=== PATIENT | female | born 1995 | race Caucasian/White ===

== ENCOUNTER 2018-06-29 05:37 | Inpatient (IN) ==
[2018-06-29] MEDS ORDERED: Naloxone 0.4 MG/ML INJ IVP PRN (05:39)
[2018-06-29] MEDS ORDERED: Famotidine 20 MG/2 ML VIAL IVP PRN (05:39)
[2018-06-29] MEDS ORDERED: Metoclopramide 10 MG/2 ML VIAL IVP PRN ×2 (05:39→11:14)
[2018-06-29] MEDS ORDERED: Ringers Solution, Lactated 1,000 ML IVC ONE (05:41)
[2018-06-29] MEDS ORDERED: Ringers Solution, Lactated 1,000 ML IVC SCH (05:45)
[2018-06-29 06:50] LABS: Basophils # 0.1 K/mcL (0.0-0.2); Basophils % 0.6 %; Eosinophils # 0.3 K/mcL (0.0-0.6); Eosinophils % 3.6 %; Hematocrit 34.5 % (35.3-44.9); Hemoglobin 11.2 g/dL (11.5-15.4); Immature Granulocytes % 0.8 % (0-4); Lymphocytes # 1.4 K/mcL (0.6-4.6); Lymphocytes % 15.7 %; Mean Corpuscular HGB Conc 32.5 g/dL (31.6-35.5); Mean Corpuscular Hemoglobin 26.4 pg (28.0-33.3); Mean Corpuscular Volume 81.4 fL (83.0-100.0); Mean Platelet Volume 12.5 fL (9.4-12.4); Monocytes # 0.7 K/mcL (0.0-1.3); Monocytes % 7.2 %; Neutrophils # 6.5 K/mcL (1.6-8.9); Platelet Count 234 K/mcL (140-400); Red Blood Count 4.24 M/mcL (3.82-4.97); Red Cell Distribution Width 13.4 % (11.5-14.5); Segmented Neutrophils % 72.1 %
--- NOTE | 2018-06-29 06:53 | Anesthesia Evaluation PreOp ---
Date of Encounter: 06/29/18 Time of Encounter: 06:51 - Past History Planned Operation: Repeat Cardiac History: Denies any Significant Hx Pulmonary History: Denies Any Significant HX MECHANICAL PRODUCT ENGINEER History: Denies Any Significant HX Other Medical History: Denies Any Significant HX Anesthesia History: No Prior Anesthetic Complications (previous REINA x 1 w/ no complications; denies personal and family h/o GA complications), Past Anesthesia (GA for b/c REINA unable to provide adequate anesthesia) : Yes Alcohol Use: none Drug use: none Medications and Allergies Tablet 1 tab PO DAILY 11/29/17 [History] 3 Allergy/AdvReac Type Severity Reaction Status Date / Time No Known Allergies Allergy Verified 05/26/17 18:06 - Meds/Allergy Pre-op Review Medications Reviewed: Yes Allergies Reviewed: Yes Beta Blockers on Current Med List: No Anesthesia Exam 128/72, HR 90, RR 18 O2 Sat Height 1.78 m Weight 127.9 kg NPO (# of Hours): > 8hrs Pain Scale: 0 Pain Scale Used: Numeric (1 - 10) - HEENT Pupil (Motor): Pupils equal Mallampati: I Teeth: Normal Oral Opening: Greater than 3 - MECHANICAL PRODUCT ENGINEER LOC: Oriented MECHANICAL PRODUCT ENGINEER Motor: Normal RUE, Normal LUE, Normal RLE, Normal LLE, Normal Face MECHANICAL PRODUCT ENGINEER Sensory: Normal: RUE, LUE, RLE, LLE, Face - Cardiac Rhythm: Regular Murmur: None - Pulmonary Breath Sounds: bilateral Clear Respiratory Effort: Symmetrical Anesthesia Assess/Plan ASA Score: 3 (BMI >40) Modified Dar Scale for Level of Consciousness: Cooperative, oriented, and tranquil Anesthetic Plan: General (plan B), Regional (single shot spinal plan A) Autologous Blood: No Monitoring Plan: Standard Monitors Recovery Plan: PACU
[2018-06-29 07:22] LABS: Amphetamine Screen,Urine Negative ng/mL (Cutoff=1000); Barbiturate Screen,Urine Negative ng/mL (Cutoff=200); Benzodiazepines Screen,Urine Negative ng/mL (Cutoff=300); Cannabinoid Screen,Urine Negative ng/mL (Cutoff = 50); Cocaine Screen,Urine Negative ng/mL (Cutoff= 300); Opiate Screen,Urine Negative ng/mL (Cutoff=300); Phencyclidine Screen,Urine Negative ng/mL (Cutoff=25)
[2018-06-29] MEDS ORDERED: MetroNIDAZOLE 500 MG/100 ML 500 MG/100 ML BAG IVPB ONE (07:25)
[2018-06-29] MEDS ORDERED: cefOXitin 2,000 MG in Water for inj. (sterile) 20 ML 20 ML IVP ONE (07:26)
--- NOTE | 2018-06-29 07:31 | OB/GYN History & Physical ---
Date of Encounter: 06/29/18 Time of Encounter: 07:28 Assessment and Plan (1) 39 weeks gestation of Current visit: Yes Status: Acute The patient has received care since 10 weeks gestation. (2) Obesity complicating , third trimester Current visit: Yes Status: Acute The patient has had glucose testing which has been reassuring. She has had serial ultrasounds with reassuring growth. (3) Previous delivery affecting , antepartum Current visit: Yes Status: Acute The patient was offered TOLAC versus repeat . She has given informed consent to proceed today for repeat . (4) Preoperative evaluation for tubal ligation Current visit: Yes Status: Acute The patient signed consent on 03/03/18 for a tubal ligation. Her desire to have permanent sterilization has been reviewed today and confirmed (5) UTI in , antepartum Current visit: Yes Status: Acute Patient has received serial urine cultures during and they have been negative (6) Positive GBS test Current visit: Yes Status: Acute The patient is aware of her results. As long as she had not ruptured prior to scheduled she/fetus would not need to be treated History of Present Illness Chief complaint: Repeat with tubal ligation HPI: Ms. Conway is a 22 year old female with an EDC of 07/04/18 making her 39 weeks and 2 days who presents for repeat and tubal ligation. She is given informed consent and she has also signed Medicaid tubal papers on . She reports an active fetus. She had a headache yesterday but none today. She denies regular contractions but has had some heart pains. She has had no vaginal bleeding or loss of fluid. The has been complicated by obesity, history of previous , positive HSV-2, UTI, low-grade dysplasia and positive GBS test. Her blood type is AB+ she is rubella immune varicella immune Past Med Surg Social Fam HX - Past Medical History Source: patient, old records reviewed Medical history: no medical history, other Additional medical history: headaches Psychiatric history: no psych history - Past Surgical History Surgical History: other Additional surgical history: C/S X1 - Social History Smoking Status: Never smoker Smokeless Tobacco Status: No Alcohol use: none Drug use: none - Family History Mother Hx Family Cardiac Disorders: No Hx Family Respiratory Disorders: No Hx Family Cancer: No Hx Family GI Disorders: No Hx Family Genitourinary Disorders: No Hx Family Endocrine Disorder: No Hx Family Musculoskeletal Disorders: No Hx Family Neuromuscular Disorders: No Hx Family Neurologic Disorders: No Hx Family HEENT Disorders: No Hx Family Autoimmune Disorders: No Hx Family Reproductive Disorders: No Hx Family Psychosocial Disorders: No Hx Family Medical Disorders: No Obstetrical History - Pregnancies : 2 Term: 1 Livin Medications and Allergies Tablet 1 tab PO DAILY 11/29/17 [History] 3 Allergy/AdvReac Type Severity Reaction Status Date / Time No Known Allergies Allergy Verified 05/26/17 18:06 Review of System OB All systems PM: reviewed and no additional remarkable complaints except as stated - Constitutional Constitutional ROS IM: weight gain - Neurological Nerological: as per HPI Exam - Vital Signs Vital signs: Afebrile, vital signs stable - Constitutional Constitutional: well developed, well nourished, no acute distress, obese - HEENT HEENT: Normocephaly, Mucus Membranes Moist - Neck Neck exam: normal inspection, supple - Lungs Respiratory exam: CTAB - Cardiovascular Cardiovascular exam: RRR - Breasts Breast: bilateral: normal (Gravid) - Abdomen Abdomen: Present: bowel sounds normal, gravid, non tender - Extremities Extremities exam: pedal edema, warm Deep Tendon Reflex Grade: 3+ Normal But Brisk - Vulva Vulva: bilateral: normal - Vagina Vagina: Present: normal moisture - Anus/Rectum Anus/Rectum: Present: normal perianal skin Results Result Diagrams: 06/29/18 06:20 Abnormal lab results Hgb 11.2 g/dL (11.5-15.4) L 06/29/18 06:20 Hct 34.5 % (35.3-44.9) L 06/29/18 06:20 MCV 81.4 fL (83.0-100.0) L 06/29/18 06:20 MCH 26.4 pg (28.0-33.3) L 06/29/18 06:20 MPV 12.5 fL (9.4-12.4) H 06/29/18 06:20 All other labs normal. - VTE Documentation of Mechanical Device: Intermittent pneumatic compression device
[2018-06-29] MEDS ORDERED: EPHEDrine 50 MG/ML VIAL ONE (07:40)
[2018-06-29] MEDS ORDERED: *HR* FentaNYL (PF) 100 MCG/2 ML VIAL ONE (07:41)
[2018-06-29] MEDS ORDERED: *HR* Morphine Sulfate/PF 10 MG/10 ML AMPUL ONE (07:41)
[2018-06-29] MEDS ORDERED: Ringers Solution, Lactated 1,000 ML ONE (07:42)
[2018-06-29] MEDS ORDERED: *HR* Oxytocin 10 UNIT/ML VIAL IM ONE (07:42)
[2018-06-29] MEDS ORDERED: Lidocaine -MPF 1% 5 ML AMPUL ONE (07:42)
[2018-06-29] MEDS ORDERED: Ondansetron 4 MG/2 ML VIAL ONE (08:40)
[2018-06-29] MEDS ORDERED: Dexamethasone 4 MG/ML VIAL ONE (08:40)
--- NOTE | 2018-06-29 08:57 | Anesthesia Procedures ---
Date of Encounter: 06/29/18 Time of Encounter: 07:45 Procedures: Anesthesia - Epidural/Spinal Patient ID/Chart reviewed: Yes Patient examined: Yes OB Eval: Gestational age: 39.3 OB Eval: : 2 OB Eval: Hx Para: 1 OB Eval: Contractions: Non-stressed pattern Consent Obtained: Yes Site Prep: Aseptic Technique, Sterile prep and drape, Povidone-Iodine 1% Patient position: upright Amount of Local Anesthetic used: 3 Interspace Used: L4-L5 Loss of Resistance (PRUDENCIO): No Blood: No CSF: Yes Paresthesia: Yes Procedure: Bupicicaine 0.75% 1.6ml fentanyl 10mcg duramorph 0.3mg Vitals + FHT's: stable throughout see nursing notes
[2018-06-29] MEDS ORDERED: *HR* Morphine 2 MG/ML SYRINGE IVP PRN (08:58)
[2018-06-29] MEDS ORDERED: Ondansetron 4 MG/2 ML VIAL IVP PRN ×2 (08:58→11:14)
[2018-06-29] MEDS ORDERED: *HR* OxyCODONE/APAP 5/325 TABLET PO PRN ×2 (08:58→11:14)
[2018-06-29] MEDS ORDERED: Acetaminophen IV 1,000 MG/100 ML INFUS..BTL IVPB ONE (08:58)
[2018-06-29] MEDS ORDERED: *HR* Meperidine 25 MG/ML SYRINGE IVP PRN (08:58)
[2018-06-29] MEDS ORDERED: Ondansetron 4 MG/2 ML VIAL IVP ONE (08:58)
[2018-06-29] MEDS ORDERED: *HR* Promethazine 25 MG/ML VIAL IVP PRN (08:58)
--- NOTE | 2018-06-29 09:34 | OB/GYN Procedure Note ---
Section - Date of procedure: 06/29/18 Preop diagnosis: desires repeat , desires sterilization Post-op diagnosis: same Procedure: section, repeat low transverse, bilateral tubal ligation Surgeon: Diamante Poon Blood Loss: 500 Was there an elder assistant present: Yes Boots And Shoes Supervisor: Stanislaw Mcgill Anesthesiologist: Melisa England Manager Of Change: Maria Isabel Hudson Anesthesia Type: Spinal section complications: none Disposition: L&D Recovery Room Specimens: Placenta, Cord segment, Right tube segment, Left tube segment - Infant (s) A Infant Delivery Date: 06/29/18 Infant Delivery Time: 08:34 Presentation: vertex Position: OP Route of delivery: other ( section) Gender: Female Viability: Viable Pounds: 7 Ounces: 13 Gram Weight: 3.53 kg at 1 minute: 8 at 5 minutes: 8 Placenta: spontaneous Cord: 3 umbilical vessels - Narrative Narrative: The patient was taken to the operating room and spinal anesthesia was given and tested to be adequate for abdominal and pelvic surgery. She was prepped and draped in the usual sterile fashion. Timeout was completed. A Pfannenstiel skin incision was made above and below the old scar. The cicatrix was excised and then the subcutaneous layer was sharply dissected down to the fascia. The fascia was incised in the midline and extended bilaterally. 2 straight [place] clamps were placed on the inferior fascial edge and the fascia was bluntly and sharply dissected away from the rectus muscles. This was repeated superiorly. The rectus muscles were bluntly dissected. Peritoneum was bluntly entered and then extended superiorly and inferiorly. Anterior omental adhesions were lysed with a Bovie. Good hemostasis noted. The Bladder blade was placed to protect the bladder. Vesicouterine peritoneum was incised and reflected inferiorly and the bladder blade was replaced to protect the bladder. A low transverse incision was then made through the lower uterine segment down to the amnion. This was bluntly extended bilaterally. The amnion was bluntly entered. This was followed by the vertex delivery of a viable and vigorous female weighing _7_#_13_oz with Apgars of _8/8_. was placed on the maternal abdomen. The cord was clamped and cut after a delay. Infant was handed to the nursery care team. The placenta was delivered spontaneous and intact then the uterine cavity was digitally palpated and wiped clean with a moist lap sponge. There were no placental remnants identified. Clamps were placed on the uterine angles and the uterine incision was closed using 0 Vicryl suture in a running, locking fashion. A second imbricating layer completed the uterine closure with 0 Vicryl suture. Good hemostasis achieved. Attention was then placed on the fallopian tubes. The tubes and ovaries appeared grossly normal bilaterally. The left fallopian tube was grasped with a [place] clamp and O-Plain suture was used to doubly ligate a loop of tube. The loop of tube was then excised and sent to pathology. Good hemostasis is noted at the tubal lumens. This was repeated for the patient's right side. Again good hemostasis noted at the tubal lumens. The uterus was then examined and noted to be hemostatic. The pelvis was then irrigated with a copious amount of sterile water. And again good hemostasis was identified. The peritoneal edges and rectus muscles were then examined and found to be hemostatic. The fascia was then closed using 0 PDS loop in a running nonlocking fashion. Subcutaneous tissue was irrigated with sterile water, good hemostasis was achieved. This layer was closed with O - stratastfix. The skin was then closed using a 4-0 Monocryl in a running subcuticular fashion. The incision was then reinforced Dermabond the mesh closure. Good hemostasis was noted. Estimated blood loss was 500cc. The [place] was noted to be draining clear yellow urine at the end of the procedure. All sponge and instrument counts are correct at the end of the procedure. The patient was taken to the recovery room in stable condition.
[2018-06-29] MEDS ORDERED: Simethicone 80 MG TAB.CHEW PO PRN (11:14)
[2018-06-29] MEDS ORDERED: Sennosides 8.6 MG TABLET PO PRN (11:14)
[2018-06-29] MEDS: Ibuprofen 600 MG TABLET PO SCH ×2 (20:05→20:06)
[2018-06-29] MEDS: Oxytocin 20 units/ LR 1000 mL 20 UNIT/1,000 ML BAG IVC SCH ×2 (20:09→20:24)
--- NOTE | 2018-06-29 20:36 | Anesthesia Evaluation Post Op ---
Date of Encounter: 06/29/18 Time of Encounter: 09:00 - Lungs Lungs: Clear Ascult./Percussion - Airway Airway: Non-obstructed - Cardiovascular Regular Rate - Mental Status Mental Status: Alert & Oriented, Answers Appropriately - Pain Pain Scale: 0 - Nausea Vomiting Nausea Vomiting: Not Present - Hydration Hydration: NPO - Discharge PostOp Status: Transfer Patient to floor
[2018-06-30] MEDS: Ibuprofen 600 MG TABLET PO SCH ×4 (00:12→18:26)
[2018-06-30 05:56] LABS: Basophils # 0.1 K/mcL (0.0-0.2); Basophils % 0.4 %; Eosinophils # 0.2 K/mcL (0.0-0.6); Eosinophils % 1.8 %; Hematocrit 34.1 % (35.3-44.9); Hemoglobin 11.1 g/dL (11.5-15.4); Immature Granulocytes % 0.8 % (0-4); Lymphocytes # 1.8 K/mcL (0.6-4.6); Lymphocytes % 15.4 %; Mean Corpuscular HGB Conc 32.6 g/dL (31.6-35.5); Mean Corpuscular Hemoglobin 27.2 pg (28.0-33.3); Mean Corpuscular Volume 83.6 fL (83.0-100.0); Mean Platelet Volume 12.7 fL (9.4-12.4); Monocytes # 0.8 K/mcL (0.0-1.3); Monocytes % 6.8 %; Neutrophils # 8.8 K/mcL (1.6-8.9); Platelet Count 219 K/mcL (140-400); Red Blood Count 4.08 M/mcL (3.82-4.97); Red Cell Distribution Width 13.2 % (11.5-14.5); Segmented Neutrophils % 74.8 %
[2018-06-30] MEDS: Oxytocin 20 units/ LR 1000 mL 20 UNIT/1,000 ML BAG IVC SCH (06:13)
[2018-06-30] MEDS: Prenatal Vit/FA 1 EACH TABLET PO SCH (09:39)
[2018-06-30] MEDS ORDERED: Albuterol 2.5 MG/3 ML NEBULIZER IH PRN (11:36)
--- NOTE | 2018-06-30 11:40 | OB/GYN Progress Note ---
Date of Encounter: 06/30/18 Time of Encounter: 11:38 - Assessment and Plan (1) delivery delivered Current Visit: Yes Status: Acute Pt meeting all post-op day 1 milestones. Plan for discharge home PPD#2-3. (2) Wheezing on auscultation Current Visit: Yes Status: Acute Plan for albuterol nebulizer today. Education provided on splinting to cough and use of incentive spirometer. Subjective - Subjective Interval history: Pt reports some incisional pain but has not taken anything other than Motrin. She denies need for anything stronger at this time. She also reports a cough that has been present for about a week. Otherwise feeling well. Patient reports: appetite normal, voiding normally, pain well controlled, ambulating normally : doing well Objective - Vital Signs Latest vital signs: Vital Signs Temp Pulse Resp BP Pulse Ox 06/30/18 09:59 97.9 F 94 16 130/84 06/30/18 09:47 16 06/30/18 04:40 97.7 F 83 16 128/83 97 06/30/18 00:12 97.9 F 87 14 113/54 96 06/29/18 19:30 98.4 F 88 14 131/81 96 06/29/18 15:10 98.1 F 79 14 123/73 95 06/29/18 14:05 98.3 F 76 14 105/72 96 06/29/18 13:06 98.0 F 78 16 139/80 98 06/29/18 12:30 98.4 F 81 14 133/69 98 06/29/18 12:21 98.2 F 69 16 136/84 97 Intake and Output 06/29/18 06/30/18 06/30/18 23:59 07:59 15:59 Intake Total 1150 / 1150 Output Total 400 / 400 750 / 750 Balance -400 / -400 400 / 400 Intake: IV Fluids 1000 / 1000 Pitocin 20 unit In 1,000 ml @ 1000 / 1000 125 mls/hr IVC .Q8H JOYCE Rx#: [id number] Oral 150 / 150 Output: Urine 750 / 750 Catheter 400 / 400 Other: Weight 124.058 kg Patient Weight 06/30/18 23:59 Weight 124.058 kg - Exam Lungs: left: wheezes, right: diminished at base, bilateral: normal Chest: Normal S1, Normal S2 Extremities: Present: edema (1+ bilaterally) Abdomen: Present: soft Incision: Present: dry, intact Uterus: Present: firm - Labs Labs: Laboratory Results - last 24 hr 06/30/18 05:26 WBC 11.8 H RBC 4.08 Hgb 11.1 L Hct 34.1 L MCV 83.6 MCH 27.2 L MCHC 32.6 RDW 13.2 Plt Count 219 MPV 12.7 H Immature Gran % 0.8 Seg Neutrophils % 74.8 Lymphocytes % 15.4 Monocytes % 6.8 Eosinophils % 1.8 Basophils % 0.4 Neutrophils # 8.8 Lymphocytes # 1.8 Monocytes # 0.8 Eosinophils # 0.2 Basophils # 0.1
[2018-06-30] MEDS ORDERED: Permethrin Cream Rinse 60 ML LIQUID TP ONE (20:34)
--- NOTE | 2018-06-30 20:40 | Event Note ---
Date of Encounter: 06/30/18 Time of Encounter: 20:35 Pt c/o right side pain in lower ribcage. She also reports worsening shortness of breath since she has not been able to cough effectively due to incision pain. She has had 2 albulterol treatments without improvement of her sx. She is now tachycardic to 116 BPM as well. On exam crackles noted in all lung barrow bilaterally. This is significantly worse than this am. Plan for chest x-ray stat. SpO2 stable. POC discussed with Dr. Garay. Incidental finding of lice infestation noted at this time as well. Will treat for this as well.
[2018-06-30 21:40] LABS: ABG Base Excess -1 mEq/L (-2 to 3); ABG HCO3 22 mEq/L (21-27); ABG Oxygen Saturation 96 % (95-98); ABG PCO2 29 mmHg (35-45); ABG PH 7.49 pH Units (7.32-7.45); ABG PO2 71 mmHg (85-104); ABG TCO2 23 mEq/L (20-26)
[2018-06-30] MEDS: Isovue-370 500 ML INFUS..BTL IV ONE ×2 (22:18→22:19)
[2018-06-30 22:32] LABS: eGFR For Non-African Americans > 60 (> 60)
[2018-07-01] MEDS: Ibuprofen 600 MG TABLET PO SCH ×2 (00:06→11:00)
[2018-07-01] MEDS: Prenatal Vit/FA 1 EACH TABLET PO SCH (10:59)
[2018-07-01 11:21] VITALS: BP 144/87
--- NOTE | 2018-07-01 11:34 | Discharge Summary ---
Date of Encounter: 07/01/18 Time of Encounter: 11:24 - Discharge Diagnosis (1) delivery delivered Priority: Primary Status: Acute Comments: Stable in PP, pain well managed on po pain medication, tolerates regular diet, denies chest pain or SOB, bottle feeding, desires discharge, Will discharge home on Zithromax (2) Wheezing on auscultation Priority: Secondary Status: Acute Comments: Will discharge home on Zpack - Discharge Medications Prescriptions: OxyCODONE/APAP 5/325 [Percocet 5/325 MG] 1 each PO Q4HR PRN 5 Days #20 tablet PRN Reason: Moderate pain 4-6 Ibuprofen [Motrin] 600 mg PO Q6HR #60 tablet Azithromycin [Zithromax] 500 mg IVPB Q24H #7 vial Docusate [Colace] 100 mg PO BID #30 capsule Home Medications: Tablet 1 tab PO DAILY 11/29/17 [History] Azithromycin [Zithromax] 500 mg IVPB Q24H #7 vial 07/01/18 [Rx] Docusate [Colace] 100 mg PO BID #30 capsule 07/01/18 [Rx] GuaiFENesin ER [Mucinex] 600 mg PO BID PRN tbbp.12hr 07/01/18 [Rx] Ibuprofen [Motrin] 600 mg PO Q6HR #60 tablet 07/01/18 [Rx] OxyCODONE/APAP 5/325 [Percocet 5/325 MG] 1 each PO Q4HR PRN 5 Days #20 tablet [Rx] Vit/FA 1 each PO DAILY tablet 07/01/18 [Rx] Simethicone [Gas-X] 80 mg PO TID PRN tab.chew 07/01/18 [Rx] Allergies/Adverse Reactions: 3 Allergy/AdvReac Type Severity Reaction Status Date / Time No Known Allergies Allergy Verified 05/26/17 18:06 Data Procedures and tests throughout hospitalization: Laboratory Tests 06/29/18 06/29/18 06/30/18 06:20 06:20 05:26 WBC 9.1 11.8 H RBC 4.24 4.08 Hgb 11.2 L 11.1 L Hct 34.5 L 34.1 L MCV 81.4 L 83.6 MCH 26.4 L 27.2 L MCHC 32.5 32.6 RDW 13.4 13.2 Plt Count 234 219 MPV 12.5 H 12.7 H Immature Gran % 0.8 0.8 Seg Neutrophils % 72.1 74.8 Lymphocytes % 15.7 15.4 Monocytes % 7.2 6.8 Eosinophils % 3.6 1.8 Basophils % 0.6 0.4 Neutrophils # 6.5 8.8 Lymphocytes # 1.4 1.8 Monocytes # 0.7 0.8 Eosinophils # 0.3 0.2 Basophils # 0.1 0.1 Sample Site ABG pH ABG pCO2 ABG pO2 ABG HCO3 ABG Total CO2 ABG O2 Saturation ABG Base Excess Dwayne Test Creatinine Est GFR ( Amer) Est GFR (Non-Af Amer) Urine Opiates Screen Negative Ur Barbiturates Screen Negative Ur Phencyclidine Scrn Negative Ur Amphetamines Screen Negative U Benzodiazepines Scrn Negative Urine Cocaine Screen Negative U Marijuana (THC) Screen Negative Ur Drug Screen Interp See Below 06/30/18 06/30/18 21:36 21:46 WBC RBC Hgb Hct MCV MCH MCHC RDW Plt Count MPV Immature Gran % Seg Neutrophils % Lymphocytes % Monocytes % Eosinophils % Basophils % Neutrophils # Lymphocytes # Monocytes # Eosinophils # Basophils # Sample Site L Radial ABG pH 7.49 H ABG pCO2 29 L ABG pO2 71 L ABG HCO3 22 ABG Total CO2 23 ABG O2 Saturation 96 ABG Base Excess -1 Dwayne Test Positive Creatinine 0.60 Est GFR ( Amer) > 60 Est GFR (Non-Af Amer) > 60 Urine Opiates Screen Ur Barbiturates Screen Ur Phencyclidine Scrn Ur Amphetamines Screen U Benzodiazepines Scrn Urine Cocaine Screen U Marijuana (THC) Screen Ur Drug Screen Interp Labs on day of discharge: Labs from last 24 hours 06/30/18 06/30/18 21:46 21:36 Sample Site L Radial ABG pH 7.49 H ABG pCO2 29 L ABG pO2 71 L ABG HCO3 22 ABG Total CO2 23 ABG O2 Saturation 96 ABG Base Excess -1 Dwayne Test Positive Creatinine 0.60 Est GFR ( Amer) > 60 Est GFR (Non-Af Amer) > 60 - Impressions ITS Impressions Chest X-Ray 06/30/18 20:10 IMPRESSION: No acute cardiopulmonary disease. Small quantity of free subdiaphragmatic air. Further history includes the patient is 1 day post . D/ / Manjinder Sr MD / Manjinder Sr MD Interpreting Provider: Manjinder Sr MD Chest CTA 06/30/18 21:05 IMPRESSION: No evidence of pulmonary embolism. Trace bilateral pleural effusions with minimal dependent lower lobe airspace disease, likely atelectasis. Moderate amount of mostly nondependent extraluminal gas, presumably related to recent surgery. Correlation is recommended. D/ / Gina Bailon Cha, MD / Gina Bailon Cha, MD Interpreting Provider: Gina Bailon Cha, MD Date of admission: 06/29/18 05:37 Primary care physician: Inocencio Evans Consults: 06/30/18 22:06 Consult to Hospitalist [CONS] Stat Consulting Provider: Hospital[facility] Lynn Reason for Consult: short of breath, SpO2 91-94, tachycardia Time Notified: 21:17 Call Completed: Yes Discharging clinician: Alba Gonzalez Anticipated date of discharge: 07/01/18 - Patient Status Disposition: Home, Self-Care Condition: Good Functional capacity at discharge: independent ambulation Overall status at discharge: patient is progressing back to baseline - Discharge Instructions Follow Up With: Inocencio Evans MD [Primary Care Provider] - Diamante Queen MD [Partnered Physician] - - Diet and Activity Activity: resume usual activities as tolerated Diet: regular diet Hospital Course Reason for admission: section Delivery: section complications: none Discharge diagnosis: IUP at term delivered [place] baby: female Hospital course: Section - Date of procedure: 06/29/18 Preop diagnosis: desires repeat , desires sterilization Post-op diagnosis: same Procedure: section, repeat low transverse, bilateral tubal ligation Surgeon: Diamante Queen Quantitated Blood Loss: 500 Was there an assistant food service manager present: Yes Trumpet Teacher: Stanislaw Mcgill Anesthesiologist: Melisa England Epic Cadence Specialists: Tristan,Maria Isabel R Anesthesia Type: Spinal section complications: none Disposition: L&D Recovery Room Specimens: Placenta, Cord segment, Right tube segment, Left tube segment - Infant (s) Infant A Infant Delivery Date: 06/29/18 Infant Delivery Time: 08:34 Presentation: vertex Position: OP Route of delivery: other ( section) Gender: Female Viability: Viable Pounds: 7 Ounces: 13 Gram Weight: 3.53 kg at 1 minute: 8 at 5 minutes: 8 Placenta: spontaneous Cord: 3 umbilical vessels Stable in PP and appropriate for discharge. OARRS reviewed. Time Attestation: Total time spent providing and/or coordinating discharge services: Time Spent: Less than 30 minutes - VTE Documentation of Mechanical Device: Intermittent pneumatic compression device Exam - Constitutional Vitals: Temp Pulse Resp BP Pulse Ox 98.2 F 100 18 144/87 96 07/01/18 10:30 07/01/18 10:30 07/01/18 10:30 07/01/18 10:30 07/01/18 10:30 General appearance IM: A&O X 3 - Respiratory Respiratory exam: Present: wheezes (in bases) - Cardiovascular Cardiovascular exam IM: Present: RRR - GI/Abdominal GI/Abdominal exam IM: normal bowel sounds, soft Incision: dressed (dermabond) - Uterine Tone: Firm Uterus Position: At Umbilicus - Extremities Exam Extremities exam IM: Present: normal capillary refill, normal inspection - Neurological Exam Neurological exam: normal gait, oriented X3 - Psychiatric Additional comments: reports good mood
--- NOTE | 2018-07-03 17:42 | Electrocardiograph Report ---
[address] [address] Test Date: 2018-06-30 Pat Name: Mary Conway Department: 101 Room: [facility] Gender: Skilled Laborer: : 1995 Requested By: [id number] Order Number: [id number] Reading MD: Morgan Lee Measurements Intervals [place] Rate: 117 P: 54 [place]: 146 QRS: 49 QRSD: 76 T: 27 QT: 306 QTc: 375 Interpretive Statements SINUS TACHYCARDIA Electronically Signed On 07-03-2018 17:41:18 EDT by Morgan Lee
== END 2018-07-01 12:39 | disposition home or self-care (01) | DRG 540 ==
LOC: 1NENULAB 05:37 → 1NENUOBS 12:12
PROVIDERS: ADMIT Obstetrics & Gynecology; ATTEND Obstetrics & Gynecology